=== PATIENT | male | born 1980 | race Caucasian/White ===

== ENCOUNTER 2023-06-29 12:33 | Inpatient (IN) | payer OTHER ==
[2023-06-29 12:53] VITALS: BMI 36.4
[2023-06-29] MEDS ORDERED: ACETAMINOPHEN 325 MG TABLET (FP) PO PRN (15:00)
[2023-06-29] MEDS ORDERED: ONDANSETRON *ODT* 4 MG TABLET SL PRN (15:00)
[2023-06-29] MEDS ORDERED: MAGNESIUM HYDROX 2400MG/30ML ORAL SUSPENSION 30 ML CUP PO PRN (15:00)
[2023-06-29] MEDS ORDERED: BENZONATATE 200 MG CAPSULE PO PRN (15:00)
[2023-06-29] MEDS ORDERED: NALOXONE HCL 0.4 MG/ML VIAL IM PRN (15:00)
[2023-06-29] MEDS ORDERED: guaiFENesin 600 MG TABLET.ER (FP) PO PRN (15:00)
[2023-06-29] MEDS ORDERED: DICYCLOMINE HCL 10 MG CAPSULE PO PRN (15:00)
[2023-06-29] MEDS ORDERED: LOPERAMIDE HCL 2 MG CAPSULE PO PRN (15:00)
[2023-06-29] MEDS ORDERED: NALOXONE HCL (KLOXXADO) 8 MG SPRAY NS PRN (15:00)
[2023-06-29] MEDS ORDERED: MAG HYDROX/AL HYDROX/SIMETH 30 ML UNIT-DOSE CUP PO PRN (15:00)
[2023-06-29] MEDS ORDERED: BISMUTH SUBSALICYLATE 262 MG/15 ML BTL PO PRN (15:00)
[2023-06-29] MEDS ORDERED: POLYETHYLENE GLYCOL (HEALTHYLAX) 3350 17 GM PACKET PO PRN (15:00)
[2023-06-29] MEDS ORDERED: IBUPROFEN 600 MG TABLET (FP) PO PRN (15:00)
[2023-06-29] MEDS ORDERED: BENZOCAINE/MENTHOL (CHLORASEPTIC ) LOZENGE MM PRN (15:00)
[2023-06-29] MEDS ORDERED: methaDONE HCL 10 MG TABLET (FOR DETOX USE ONLY) ONE (15:13)
[2023-06-29] MEDS ORDERED: cloNIDine HCL 0.1 MG TABLET ONE ×2 (15:13→16:23)
[2023-06-29] MEDS: cloNIDine HCL 0.1 MG TABLET PO ONE ×2 (15:21→16:25)
[2023-06-29] MEDS: methaDONE HCL 10 MG TABLET (FOR DETOX USE ONLY) PO ONE (15:21)
[2023-06-29] MEDS: ENALAPRIL MALEATE 10 MG TABLET PO ONE (16:53)
[2023-06-29] MEDS: hydrOXYzine PAMOATE 25 MG CAPSULE (FP) PO PRN (16:53)
[2023-06-29] MEDS ORDERED: ENALAPRIL MALEATE 10 MG TABLET PO SCH (22:00)
[2023-06-29] MEDS: METHOCARBAMOL 500 MG TABLET PO PRN (22:45)
[2023-06-29] MEDS: THIAMINE 100 MG TABLET PO SCH (22:45)
[2023-06-29] MEDS: MELATONIN 5 MG TABLETS PO SCH (22:45)
[2023-06-29] MEDS: cloNIDine HCL 0.1 MG TABLET PO PRN (22:45)
[2023-06-30] MEDS: ENALAPRIL MALEATE 10 MG TABLET PO SCH (09:29)
[2023-06-30] MEDS: PRENATAL VITAMINS W/ FOLIC ACID TABLET (FP) PO SCH (09:29)
[2023-06-30] MEDS: PNEUMOC 20-VAL CONJ-DIP CRM/PF 0.5 ML SYRINGE IM ONE (11:50)
[2023-06-30] MEDS: FLU VACCINE (FLULAVAL) PF 60 MCG/0.5 ML SYRINGE 2023-2024 IM ONE (11:54)
[2023-06-30 12:55] LABS: HEMATOCRIT 38.8 % (35.4-49); HEMOGLOBIN 12.9 GM/dL (11.7-16.9); MCH 28.9 pg (25.7-33.7); MCHC 33.1 g/dl (32.0-35.9); MEAN CELL VOLUME 87.2 fl (80-96); MEAN PLT VOLUME 9.3 fl (7.5-11.1); PLATELET COUNT 268 10^3/uL (134-434); RBC 4.45 M/mm3 (4.00-5.60); RDW 13.4 % (11.9-15.9); WHITE BLOOD COUNT 7.9 K/mm3 (4.0-10.0)
[2023-06-30 13:04] LABS: CHLORIDE 104 mmol/L (98-107); POTASSIUM 4.2 mmol/L (3.5-5.1); SODIUM 142 mmol/L (136-145)
[2023-06-30 13:05] LABS: CALCIUM 9.3 mg/dL (8.5-10.1)
[2023-06-30 13:06] LABS: ALBUMIN 3.2 g/dl (3.4-5.0); BLOOD UREA NITROGEN 7.6 mg/dL (7-18); GLUCOSE,RANDOM 101 mg/dL (74-106)
[2023-06-30 13:07] LABS: ANION GAP 7 mmol/L (4-13); CO2 30 mmol/L (21-32)
[2023-06-30 13:09] LABS: CREATININE 0.8 mg/dL (0.55-1.3); SGOT/AST 7 U/L (15-37); SGPT/ALT 12 U/L (13-61)
[2023-06-30 13:11] LABS: BILIRUBIN,TOTAL 0.9 mg/dL (0.2-1); TOT PROT 6.8 g/dl (6.4-8.2)
[2023-06-30 13:12] LABS: ALK PHOS 63 U/L (45-117)
[2023-06-30] MEDS: SUVOREXANT 10 MG TABLET PO PRN (22:10)
[2023-06-30] MEDS: diazePAM 5 MG TABLET PO PRN (22:11)
[2023-07-01] MEDS: IBUPROFEN 400 MG TABLET (FP) PO PRN (10:27)
[2023-07-01] MEDS: methaDONE HCL 10 MG TABLET (FOR DETOX USE ONLY) PO ONE (10:28)
[2023-07-01] MEDS: SUVOREXANT 15 MG TABLET PO PRN (22:02)
[2023-07-01] MEDS: ENALAPRIL MALEATE 10 MG TABLET PO SCH (22:04)
[2023-07-02 10:07] VITALS: BP 154/11; PULSE 103; RESP 18; TEMP 96.8
[2023-07-03] MEDS ORDERED: methaDONE HCL 10 MG TABLET (FOR DETOX USE ONLY) PO ONE (10:00)
== END 2023-07-02 11:01 | disposition home or self-care (01) | DRG 773 ==
LOC: YASAS 12:33 → Y6N 15:26
PROVIDERS: ADMIT Allergy & Immunology; ATTEND Surgery
PROC: HZ2ZZZZ Detoxification Services for Substance Abuse Treatment (ICD-10-PCS; principal; 2023-06-29)
DX: F11.23 Opioid dependence with withdrawal (principal); F14.10 Cocaine abuse, uncomplicated; F19.282 Other psychoactive substance dependence with psychoactive substance-induced sleep disorder; I10 Essential (primary) hypertension; Z56.0 Unemployment, unspecified
CPT/HCPCS: 36415; 80053; 80305; 80307; 85027; 86780; 90677; 90686; 93005; 93010; G0008

== ENCOUNTER 2024-03-24 12:24 | Inpatient (IN) | payer OTHER ==
[2024-03-24 12:47] VITALS: BMI 29.2
[2024-03-24] MEDS ORDERED: BENZOCAINE/MENTHOL (CHLORASEPTIC ) LOZENGE MM PRN (13:22)
[2024-03-24] MEDS ORDERED: ACETAMINOPHEN 325 MG TABLET (FP) PO PRN (13:22)
[2024-03-24] MEDS ORDERED: IBUPROFEN 400 MG TABLET (FP) PO PRN (13:22)
[2024-03-24] MEDS ORDERED: DICYCLOMINE HCL 10 MG CAPSULE PO PRN (13:22)
[2024-03-24] MEDS ORDERED: POLYETHYLENE GLYCOL (HEALTHYLAX) 3350 17 GM PACKET PO PRN (13:22)
[2024-03-24] MEDS ORDERED: IBUPROFEN 600 MG TABLET (FP) PO PRN (13:22)
[2024-03-24] MEDS ORDERED: LOPERAMIDE HCL 2 MG CAPSULE PO PRN (13:22)
[2024-03-24] MEDS ORDERED: guaiFENesin 600 MG TABLET.ER (FP) PO PRN (13:22)
[2024-03-24] MEDS ORDERED: MAG HYDROX/AL HYDROX/SIMETH 30 ML UNIT-DOSE CUP PO PRN (13:22)
[2024-03-24] MEDS ORDERED: ONDANSETRON *ODT* 4 MG TABLET SL PRN (13:22)
[2024-03-24] MEDS ORDERED: BENZONATATE 200 MG CAPSULE PO PRN (13:22)
[2024-03-24] MEDS ORDERED: BISMUTH SUBSALICYLATE 262 MG/15 ML BTL PO PRN (13:22)
[2024-03-24] MEDS ORDERED: NALOXONE (NARCAN) HCL 4 MG/0.1 ML SPRAY NS PRN (13:22)
[2024-03-24] MEDS ORDERED: MAGNESIUM HYDROX 2400MG/30ML ORAL SUSPENSION 30 ML CUP PO PRN (13:22)
[2024-03-24] MEDS: cloNIDine HCL 0.1 MG TABLET PO SCH (14:49)
[2024-03-24] MEDS: PRENATAL VITAMINS W/ FOLIC ACID TABLET (FP) PO SCH (14:49)
[2024-03-24] MEDS: methaDONE HCL 10 MG TABLET PO ONE (14:50)
[2024-03-24] MEDS ORDERED: methaDONE HCL 10 MG TABLET PO PRN (15:23)
[2024-03-24] MEDS: ENALAPRIL MALEATE 10 MG TABLET PO SCH (22:40)
[2024-03-24] MEDS: MELATONIN 5 MG TABLETS PO SCH (22:40)
[2024-03-24] MEDS: THIAMINE 100 MG TABLET PO SCH (22:40)
[2024-03-25] MEDS: hydrOXYzine PAMOATE 25 MG CAPSULE (FP) PO PRN (05:45)
[2024-03-25] MEDS: METHOCARBAMOL 500 MG TABLET PO PRN (05:45)
[2024-03-25] MEDS ORDERED: ENALAPRIL MALEATE 10 MG TABLET PO SCH (10:00)
[2024-03-25 12:52] LABS: HEMATOCRIT 41.5 % (35.4-49); HEMOGLOBIN 13.4 GM/dL (11.7-16.9); MCH 28.7 pg (25.7-33.7); MCHC 32.3 g/dl (32.0-35.9); MEAN CELL VOLUME 88.8 fl (80-96); MEAN PLT VOLUME 10.4 fl (7.5-11.1); PLATELET COUNT 252 10^3/uL (134-434); RBC 4.67 M/mm3 (4.00-5.60); RDW 13.8 % (11.9-15.9); WHITE BLOOD COUNT 7.8 K/mm3 (4.0-10.0)
[2024-03-25 12:56] LABS: CALCIUM 9.7 mg/dL (8.5-10.1)
[2024-03-25 12:57] LABS: ALBUMIN 3.7 g/dl (3.4-5.0); BLOOD UREA NITROGEN 5.4 mg/dL (7-18)
[2024-03-25 13:02] LABS: CREATININE 0.8 mg/dL (0.55-1.3)
[2024-03-25 13:04] LABS: BILIRUBIN,TOTAL 1.3 mg/dL (0.2-1); TOT PROT 6.6 g/dl (6.4-8.2)
[2024-03-25] MEDS: SUVOREXANT 10 MG TABLET PO PRN (21:16)
[2024-03-26] MEDS: cloNIDine HCL 0.1 MG TABLET PO PRN (07:49)
[2024-03-26] MEDS: methaDONE 40 MG, methaDONE 10 MG PO ONE (09:26)
[2024-03-26] MEDS: TRIMETHOBENZAMIDE HCL 200MG/2ML INJ IM ONE (09:26)
[2024-03-27] MEDS: cloNIDine HCL 0.1 MG TABLET PO PRN (05:53)
[2024-03-28] MEDS: ENALAPRIL MALEATE 10 MG TABLET PO SCH (06:59)
[2024-03-28] MEDS: methaDONE 40 MG, methaDONE 20 MG PO ONE (10:13)
[2024-03-28 11:19] VITALS: BP 162/101; PULSE 67; RESP 18; TEMP 98.9
[2024-03-28] MEDS: NALOXONE (NYS OPIOID OVERDOSE PROGRAM) 4 MG/0.1 ML SPRAY NS SCH (11:24)
== END 2024-03-28 11:30 | disposition home or self-care (01) | DRG 773 ==
LOC: SUATTDRO 12:24 → YASAS 12:24 → Y3N 14:38
PROVIDERS: ADMIT Allergy & Immunology; ATTEND Surgery
PROC: HZ2ZZZZ Detoxification Services for Substance Abuse Treatment (ICD-10-PCS; principal; 2024-03-24)
DX: F11.23 Opioid dependence with withdrawal (principal); F14.10 Cocaine abuse, uncomplicated; I10 Essential (primary) hypertension; G47.00 Insomnia, unspecified
CPT/HCPCS: 36415; 80053; 85027; 86780; 93005; 93010